=== PATIENT | male | born 1985 | race Caucasian/White ===

== ENCOUNTER 2018-07-11 17:08 | Emergency (ER) | payer MEDICAID ==
[~2018-07-11] VITALS: Ht 172.7 cm; Wt 89.4 kg
[2018-07-11 17:10] VITALS: BP 131/95
--- NOTE | 2018-07-11 17:10 | NUR ---
PATIENT AMBULATED TO BED 2 AT THIS TIME.
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
--- NOTE | 2018-07-11 17:20 | NUR ---
jones emt at bedside for laceration set up
--- NOTE | 2018-07-11 17:27 | NUR ---
DR FONTAINE AT BEDSIDE FOR PT EVALUATION
[2018-07-11] MEDS ORDERED: LIDOCAINE/EPI 1% 1:100000 20 ML VIAL INJ ONE (17:30)
--- NOTE | 2018-07-11 17:39 | NUR ---
LIDOCAINE AT BEDSIDE FOR ERMD
--- NOTE | 2018-07-11 17:52 | NUR ---
DR FONTAINE AT BEDSIDE FOR LIDOCAINE ADMINISTRATION
--- NOTE | 2018-07-11 17:54 | NUR ---
RAJANI EMT AT BEDSIDE FOR WOUND CARE
--- NOTE | 2018-07-11 18:48 | NUR ---
BACITRACIN AT BEDSIDE
[2018-07-11] MEDS ORDERED: BACITRACIN OINT 500 UNITS/GM PKT TP ONE ×2 (18:49→18:50)
--- NOTE | 2018-07-11 18:50 | NUR ---
WOUND DRESSING APPLIED BY RAJANI EMT. CAP REFILL <3 SECONDS. +RT RADIAL PULSE. PT VERBALIZES UNDERSTANDING OF WOUND CARE.
[2018-07-11 19:10] VITALS: BP 126/87
== END 2018-07-11 19:10 | disposition home or self-care (01) ==
LOC: MED 17:08
DX: S51.811A Laceration without foreign body of right forearm, initial encounter (principal); W45.8XXA Other foreign body or object entering through skin, initial encounter; Y93.89 Activity, other specified; Y92.89 Other specified places as the place of occurrence of the external cause; Y99.8 Other external cause status
CPT/HCPCS: 12032; 90471; 90715; 99284; J2001

== ENCOUNTER 2018-07-21 12:07 | Emergency (ER) | payer MEDICAID ==
[~2018-07-21] VITALS: Ht 170.2 cm; Wt 90.8 kg
[2018-07-21 12:26] VITALS: BP 123/73
--- NOTE | 2018-07-21 12:33 | NUR ---
PATIENT AMBULATED TO ER BED 4. RN EVALUATING AT BEDSIDE.
--- NOTE | 2018-07-21 13:08 | NUR ---
Dr. Naylor evaluating patient at bedside.
[2018-07-21 13:29] VITALS: BP 119/82
--- NOTE | 2018-07-21 13:29 | NUR ---
Patient discharged with v/s stable. Written and verbal after care instructions given and explained. Patient verbalized understanding. Ambulatory with steady gait. All questions addressed prior to discharge. Advised to follow up with PMD.
== END 2018-07-21 13:29 | disposition home or self-care (01) ==
LOC: MED 12:07
DX: S51.811D Laceration without foreign body of right forearm, subsequent encounter (principal); X58.XXXD Exposure to other specified factors, subsequent encounter
CPT/HCPCS: 99281